=== PATIENT | female | born 1985 | race Two or more races ===

== ENCOUNTER 2022-11-16 08:15 | Inpatient (IN) | payer OTHER ==
[~2022-11-16] VITALS: Ht 154.9 cm; Wt 65.8 kg
== END 2022-11-23 14:28 | disposition home or self-care (01) | DRG 743 ==
LOC: O/R 11-22 06:52 → OB/GYN 11-22 08:15
PROVIDERS: ADMIT Obstetrics & Gynecology Gynecologic Oncology; ATTEND Obstetrics & Gynecology Gynecologic Oncology
PROC: 0UT74ZZ Resection of Bilateral Fallopian Tubes, Percutaneous Endoscopic Approach (ICD-10-PCS; 2022-11-22)
PROC: 0UT94ZZ Resection of Uterus, Percutaneous Endoscopic Approach (ICD-10-PCS; principal; 2022-11-22 16:30)
DX: D25.1 Intramural leiomyoma of uterus (principal); N80.03 Adenomyosis of the uterus; Z20.822 Contact with and (suspected) exposure to COVID-19